=== PATIENT | female | born 1970 | race Caucasian/White ===

== ENCOUNTER 2016-06-30 16:58 | Emergency (ER) | payer MEDICAID, OTHER ==
[2016-06-30 17:12] VITALS: TEMP 98.2
--- NOTE | 2016-06-30 18:03 | C.PDOC ---
History Of Present Illness 46 y/o female presents to the ED with complains of right elbow pain x3 days. Pt states she accidentally struck her elbow against a wall, pain has gradually increased and is worse with movement. Denies fever, numbness, weakness or any other complaints. Time Seen by Provider: 06/30/16 17:16 Chief Complaint (Nursing): Upper Extremity Problem/Injury History Per: Patient History/Exam Limitations: no limitations Onset/Duration Of Symptoms: Days Current Symptoms Are (Timing): Worse Quality: "Pain" Severity: Moderate Exacerbating Factor(s): Movement Recent travel outside of the [place]: No Past Medical History Reviewed: Historical Data, Nursing Documentation, Vital Signs Vital Signs: Last Vital Signs Temp 98.2 F 06/30/16 17:09 Pulse 112 H 06/30/16 17:09 Resp 18 06/30/16 17:09 BP 131/91 H 06/30/16 17:09 Pulse Ox 99 06/30/16 18:12 - Medical History PMH: Asthma, Migraine Family History: States: Unknown Family Hx - Social History Hx Tobacco Use: No Hx Alcohol Use: No Hx Substance Use: No - Immunization History Hx Tetanus Toxoid Vaccination: No Hx Influenza Vaccination: No Hx Pneumococcal Vaccination: No Review Of Systems Except As Marked, All Systems Reviewed And Found Negative. Constitutional: Negative for: Fever Musculoskeletal: Positive for: Other (right elbow pain) Neurological: Negative for: Weakness, Numbness Physical Exam - Physical Exam Additional Physical Exam Comments: Constitutional: No acute distress. Head: Normocephalic. Atraumatic. Cardiovascular:Regular rate. Radial pulses 2+ bilaterally. Respiratory: Clear to auscultation bilaterally. Musculoskeletal: Tenderness at elbow, Full ROM. No erythema Skin: No rashes. Neurologic: Alert, no focal deficit. ED Course And Treatment O2 Sat by Pulse Oximetry: 99 (on room air) Pulse Ox Interpretation: Normal Medical Decision Making Medical Decision Making: XR right arm negative for fracture or dislocation. No anterior or posterior fat pad. Instructed patient to continue NSAIDs. Instructed to f/u with PMD and if pain persists, will require f/u with Ortho and MRI. Disposition - Disposition Referrals: Waylon Roger MD [Medical Doctor] - Disposition: HOME/ ROUTINE Disposition Time: 18:10 Condition: STABLE Prescriptions: Ibuprofen [Motrin] 600 mg PO Q6 #25 tab Famotidine [Pepcid] 1 tab PO BID #14 tab Instructions: Elbow Sprain (ED) - Clinical Impression Clinical Impression: Elbow contusion - Scribe Statement The provider has reviewed the documentation as recorded by the Scriblucila Bloom Provider Attestation: All medical record entries made by the Chungibe were at my direction and personally dictated by me. I have reviewed the chart and agree that the record accurately reflects my personal performance of the history, physical exam, medical decision making, and the department course for this patient. I have also personally directed, reviewed, and agree with the discharge instructions and disposition.
--- NOTE | 2016-06-30 18:13 | RAD ---
PROCEDURE: Radiographs of the right elbow. HISTORY: elbow pain COMPARISON: None available. FINDINGS: Mildly rotated lateral view. BONES: No acute displaced fracture. JOINTS: No dislocation. SOFT TISSUES: Soft tissue swelling. No evidence of radiopaque foreign body. JOINT EFFUSION: No significant joint effusion. OTHER FINDINGS: None IMPRESSION: Soft tissue swelling. No acute displaced fracture, dislocation, or significant joint effusion identified. If high clinical index of suspicion for occult fracture, cross-sectional imaging may be considered. Otherwise if symptoms persist, or if there is continued clinical concern, x-ray follow-up in 7-10 days should be considered.
[2016-06-30 18:33] VITALS: BP 132/79; PULSE 70; RESP 16; O2SAT 98
== END 2016-06-30 18:32 | disposition home or self-care (01) ==
LOC: C.ER 16:58
DX: S50.01XA Contusion of right elbow, initial encounter (principal); W22.01XA Walked into wall, initial encounter; Y92.89 Other specified places as the place of occurrence of the external cause
CPT/HCPCS: 73080; 96372; 99283; J1885